=== PATIENT | female | born 1985 | race Caucasian/White ===

== ENCOUNTER → 2016-11-16 | Outpatient (CLI) | payer BC ==
[~2016-11-16] MED LIST: ONDA4TAB46 PO; PRENTAB26 PO
[2016-11-16 11:52] LABS: URINE APPEARANCE CLEAR (CLEAR); URINE BILIRUBIN NEG (NEG); URINE COLOR YELLOW; URINE NITRITE NEG (NEG); URINE PH 6.5 (4.5-7.5); URINE SPECIFIC GRAVITY 1.015 (1.000-1.030); UROBILINOGEN NEG (NEG)
[2016-11-16 11:55] LABS: MANUAL MICROSCOPIC REQUIRED? NO; REVIEW REQ? NO
== END | disposition home or self-care (01) ==
LOC: C.LABSPEC 11:09
PROVIDERS: ATTEND Obstetrics & Gynecology
DX: Z34.83 Encounter for supervision of other normal pregnancy, third trimester (principal)

== ENCOUNTER → 2016-11-16 | Outpatient (CLI) | payer BC ==
[2016-11-16 11:19] LABS: HEMATOCRIT 36.3 % (37-47)
[2016-11-16 14:07] LABS: GTGD 50 Grams
== END | disposition home or self-care (01) ==
LOC: C.LAB1850 10:37
PROVIDERS: ATTEND Obstetrics & Gynecology
DX: Z34.83 Encounter for supervision of other normal pregnancy, third trimester (principal)

== ENCOUNTER → 2017-01-14 | Outpatient (CLI) | payer BC ==
[~2017-01-14] MED LIST changes: -ONDA4TAB46 PO
== END | disposition home or self-care (01) ==
LOC: C.LABSPEC 16:23
PROVIDERS: ATTEND Obstetrics & Gynecology
DX: Z34.83 Encounter for supervision of other normal pregnancy, third trimester (principal)

== ENCOUNTER 2017-02-06 14:26 | Inpatient (IN) | payer BC ==
[~2017-02-06] VITALS: Ht 175.3 cm; Wt 77.7 kg
[2017-02-06] MEDS ORDERED: LACTATED RINGER'S 1000ML 1,000 ML IV SCH (15:54)
[2017-02-06] MEDS ORDERED: LACTATED RINGER'S 1000ML 1,000 ML IV PRN (15:54)
[2017-02-06] MEDS ORDERED: LACTATED RINGER'S 1000ML 500 ML IV PRN ×2 (16:48→19:53)
[2017-02-06] MEDS ORDERED: OXYTOCIN 30 UNITS/500ML NSS IV PRN ×2 (17:00→20:30)
[2017-02-06 17:03] LABS: MEAN CELL VOLUME 91.4 fL (80-100); MEAN CORPUSCULAR HEMOGLOBIN 31.3 pg (25-34); MEAN CORPUSCULAR HGB CONC 34.3 g/dl (32-36); MEAN PLATELET VOLUME 10.1 fL (7.4-10.4); PLATELET COUNT 191 K/uL (130-400); RED BLOOD COUNT 3.83 M/uL (4.2-5.4); WHITE BLOOD COUNT 14.04 K/uL (4.8-10.8)
[2017-02-06] MEDS ORDERED: EpHEDrine SULFATE INJ 50 MG/ML AMP ONE (19:07)
[2017-02-06] MEDS ORDERED: BUPIVACAINE 0.25% 30 ML VIAL ONE (19:07)
[2017-02-06] MEDS ORDERED: FENTANYL 2MCG/ML ROPIV 1.25MG/ML 100ML BAG EPI ONE (19:07)
[2017-02-06] MEDS ORDERED: FENTANYL CITRATE INJ 50 MCG/1 ML 2 ML VIAL ONE (19:08)
[2017-02-06 19:25] VITALS: Ht 175.3 cm; Wt 77.7 kg
[2017-02-06] MEDS ORDERED: NALOXONE HCL INJ 1 MG in SODIUM CHLORIDE 0.9% 1000ML 1,000 ML IV PRN (19:53)
[2017-02-06] MEDS ORDERED: FENTANYL 2MCG/ML ROPIV 1.25MG/ML 100ML BAG EPI PRN (20:00)
[2017-02-06] MEDS ORDERED: ONDANSETRON INJ 2 MG/ML 2 ML VIAL IV PRN (20:00)
[2017-02-06] MEDS ORDERED: EpHEDrine SULFATE INJ 50 MG/ML AMP IV PRN (20:00)
[2017-02-06] MEDS ORDERED: DiphenhydrAMINE HCL 50 MG/ML VIAL IV PRN (20:00)
[2017-02-06] MEDS ORDERED: NALBUPHINE HCL INJ 10 MG/ML AMP IV PRN (20:00)
[2017-02-06] MEDS ORDERED: NALOXONE HCL INJ 0.4 MG/1 ML VIAL/CARP IV PRN (20:00)
[2017-02-06] MEDS ORDERED: LANOLIN OINT EXT PRN ×2 (20:30)
[2017-02-06] MEDS ORDERED: ACETAMINOPHEN 325 MG TAB PO PRN (20:30)
[2017-02-06] MEDS ORDERED: OXYCODONE/ACETAMINOPHEN 5-325 TAB PO PRN (20:30)
[2017-02-06] MEDS ORDERED: BENZOCAINE 20% AER SPR 82.5 GM CAN EXT PRN (20:30)
[2017-02-06] MEDS ORDERED: SUPERCREAM 0.870 % 15GM JAR EXT PRN (20:30)
[2017-02-06] MEDS ORDERED: HYDROCORTISONE ACETATE 25 MG SUPP PR PRN (20:30)
[2017-02-06] MEDS ORDERED: DIPHTHERIA/TETANUS/PERTUSSIS 0.5 ML SYR/VIAL IM. ONE (20:30)
[2017-02-06] MEDS ORDERED: ACETAMINOPHEN/CODEINE 300/30MG TAB PO PRN ×2 (20:30)
--- NOTE | 2017-02-06 21:07 | DELIVERY SUMMARY ---
DATE OF OPERATION: 02/06/2017 PREOPERATIVE DIAGNOSES: 1. Intrauterine at 40 weeks. 2. Premature rupture of membranes. POSTOPERATIVE DIAGNOSES: Same. PROCEDURES: 1. Pitocin augmentation. 2. Epidural anesthesia. 3. Normal spontaneous vaginal delivery. 4. Second degree perineal laceration with repair. SURGEON: Angelica Carrera MD. ANESTHESIA: Epidural. ESTIMATED BLOOD LOSS: 350 mL. DESCRIPTION OF PROCEDURE: The patient presented to labor and delivery having been ruptured for over 12 hours. She was unfortunately not mihaela in a regular pattern. The strip was category 2 and I advised Pitocin augmentation. She accepted. Pitocin was started as she progressed and got uncomfortable she received an epidural anesthesia and shortly thereafter was found to be complete/complete and +1 station. She pushed very effectively. There was a band at the hymenal ring of scar tissue that was very tight and I was unable to get it significantly massaged so I used the scissors to cut this band. Once this was performed the patient was able to bring the baby to [facility]. The head was delivered atraumatically in SHAWANDA presentation. There was a nuchal arm. There was a nuchal cord x1 which was reduced. The nose and mouth were bulb suctioned. The rest of the was then delivered without difficulty. The nose and mouth were again bulb suctioned. The infant was placed on the maternal abdomen where the cord was clamped and cut. Cord blood and segment were obtained. The placenta was delivered spontaneously intact with a 3-vessel cord. Cervix, sulci and rectum were examined and found to be intact. A second degree perineal laceration was repaired in normal standard fashion with 3-0 Vicryl. Hemostasis was obtained with dilute Pitocin and fundal massage. Estimated blood loss was 350 mL. Apgars were 8 and 9, mother and baby doing well at the end of the delivery. I attest to the content of the Intraoperative Record and any orders documented therein. Any exceptio ns are noted below.
--- NOTE | 2017-02-06 21:12 | Anesthesia Procedure Note ---
Anesthesia Epidural Removal Nt Date & Time Feb 06, 2017 at 21:11 Vital Signs Pain Intensity: 8.0 Notes Mental Status: alert / awake / arousable, participated in evaluation Nausea / Vomiting: adequately controlled Pain: adequately controlled Airway Patency, RR, SpO2: stable & adequate BP & HR: stable & adequate Hydration State: stable & adequate Neuraxial Anesthesia: was administered Anesthetic Complications: no major complications apparent, pt satisfied with anesthetic care Epidural: removed without complications, with tip intact
[2017-02-06] MEDS: IBUPROFEN 600 MG TAB PO PRN (22:30)
[2017-02-06 23:45] VITALS: BP 109/67; PULSE 83; TEMP 36.6
[2017-02-07 03:30] VITALS: BP 104/62; PULSE 58; TEMP 36.7
[2017-02-07] MEDS: IBUPROFEN 600 MG TAB PO PRN ×3 (06:04→19:48)
[2017-02-07 07:39] LABS: HEMATOCRIT 33.5 % (37-47)
[2017-02-07 08:00] VITALS: BP 103/68; PULSE 70; TEMP 36.6; O2SAT 97
--- NOTE | 2017-02-07 08:02 | Progress Note ---
Subjective Feb 07, 2017. Subjective conversation w/ patient, physical exam Ambulation: ambulating normally Voiding: no voiding problems Passing Gas: Yes Diet Tolerance: Regular Diet Lochia: Small Feeding Type: Breast Feeding Review of Systems Constitutional: No chills, No fever Respiratory: No cough, No shortness of breath Cardiac: No chest pain, No claudication Abdomen: + problem reported (bloated), No nausea, No pain, No vomiting Objective Vital Signs Date Time Temp Pulse Resp B/P Pulse Ox O2 Delivery O2 Flow Rate FiO2 02/07/17 03:30 36.7 58 16 104/62 Room Air 02/06/17 23:45 36.6 83 16 109/67 Room Air 02/06/17 23:45 Room Air Physical Exam General Appearance: WELL-APPEARING, NO APPARENT DISTRESS Respiratory/Chest: lungs clear, no accessory muscle use Cardiovascular: regular rate, rhythm, no murmur Fundus: Firm, Non-Tender, Relation to Umbilicus (at umbilicus) Laboratory Results Last 24 Hours Test 02/06/17 16:55 02/07/17 07:16 White Blood Count 14.04 K/uL Red Blood Count 3.83 M/uL Hemoglobin 12.0 g/dL 11.2 g/dL Hematocrit 35.0 % 33.5 % Mean Corpuscular Volume 91.4 fL Mean Corpuscular Hemoglobin 31.3 pg Mean Corpuscular Hemoglobin Concent 34.3 g/dl RDW Standard Deviation 46.3 fL RDW Coefficient of Variation 14.1 % Platelet Count 191 K/uL Mean Platelet Volume 10.1 fL Assessment and Plan Problem List Medical Problems: (1) Abdominal cramping Status: Acute (2) Intrauterine Status: Acute (3) Nausea & vomiting Status: Acute Post- Day#: 1 Continue Routine Care: Resident Physician Supervision Note: I interviewed and examined the patient. Discussed with Dr. Martinez and agree with findings and plan as documented in the note. Any exceptions or clarifications are listed here: Doing well. Routine care. Documented By: Angelica Carrera s/p KOBE Day 1 - vitals reviewed and wnl - Hgb 11.2 this morning - blood: O+, Rubella immune, GBS negative - encourage ambulation, encourage , monitor lochia - patient doing well clinically - will order simethicone for abdominal bloating - CONTINUE ROUTINE POST CARE
[2017-02-07] MEDS: DOCUSATE SODIUM 100 MG CAP PO SCH ×2 (08:29→19:48)
[2017-02-07] MEDS: PRENATAL VITAMIN TAB PO SCH (08:29)
[2017-02-07] MEDS: SIMETHICONE 80 MG CHEW PO SCH ×3 (08:30→19:48)
[2017-02-07 11:30] VITALS: BP 103/57; PULSE 74; TEMP 36.8; O2SAT 96
[2017-02-07 15:50] VITALS: BP 106/55; PULSE 79; TEMP 36.9
[2017-02-07 20:30] VITALS: BP 126/64; PULSE 97; TEMP 36.8
[2017-02-07 23:10] VITALS: BP 104/67; PULSE 71; TEMP 36.9; O2SAT 96
[2017-02-08] MEDS: IBUPROFEN 600 MG TAB PO PRN ×2 (00:56→06:19)
--- NOTE | 2017-02-08 06:54 | Progress Note ---
Subjective Feb 08, 2017. Subjective conversation w/ patient, physical exam Ambulation: ambulating normally Voiding: no voiding problems Passing Gas: Yes Diet Tolerance: Regular Diet Lochia: Small Feeding Type: Breast Feeding Review of Systems Constitutional: No chills, No fever Respiratory: No cough, No shortness of breath Cardiac: No chest pain, No claudication Objective Vital Signs Date Time Temp Pulse Resp B/P Pulse Ox O2 Delivery O2 Flow Rate FiO2 02/07/17 23:10 36.9 71 16 104/67 96 Room Air 02/07/17 23:10 Room Air 02/07/17 20:30 36.8 97 16 126/64 Room Air 02/07/17 15:50 Room Air 02/07/17 15:50 36.9 79 16 106/55 Room Air 02/07/17 11:30 36.8 74 18 103/57 96 Room Air 02/07/17 08:00 36.6 70 20 103/68 97 Room Air 02/07/17 08:00 97 Room Air Physical Exam General Appearance: WELL-APPEARING, NO APPARENT DISTRESS Respiratory/Chest: lungs clear, no accessory muscle use Cardiovascular: regular rate, rhythm, no murmur Fundus: Firm, Non-Tender, Relation to Umbilicus (1cm below) Extremities: non-tender, no calf tenderness Laboratory Results Last 24 Hours Test 02/07/17 07:16 Hemoglobin 11.2 g/dL Hematocrit 33.5 % Assessment and Plan Problem List Medical Problems: (1) Abdominal cramping Status: Acute (2) Intrauterine Status: Acute (3) Nausea & vomiting Status: Acute Post- Day#: 2 Continue Routine Care: Resident Physician Supervision Note: I interviewed and examined the patient. Discussed with Dr. Martinez and agree with findings and plan as documented in the note. Any exceptions or clarifications are listed here: [None] Documented By: Ami Rivas s/p Day 2 - vitals reviewed and wnl - Hgb 11.2 yesterday - blood: O+, Rubella immune, GBS negative - encourage ambulation, encourage , monitor lochia - patient doing well clinically - patient counselled on discharge instructions - PATIENT TO BE DISCHARGED TODAY
--- NOTE | 2017-02-08 07:19 | Discharge Instructions ---
Discharge Instructions Date of Service Feb 08, 2017. Admission Reason for Admission: R/O Ruptured Membranes Discharge Discharge Diagnosis / Problem: Spontaneous Vaginal Delivery Discharge Goals Goal(s): Routine recovery after delivery Medications Continue Dispensed Medications: supercream, dermaplast, tucks, lansinoh Activity Recommendations Activity Limitations: per Instructions/Follow-up section . Instructions / Follow-Up Instructions / Follow-Up ACTIVITY RECOMMENDATIONS: * Gradual return to full activity over the next 2-3 weeks. * No lifting - nothing heavier than baby over the next 2-3 weeks. * Do not engage in vigorous exercise, sexual activity or sports until cleared by your physician. * Do not drive or operate any motorized equipment until cleared by your physician. * You may shower/bathe daily. MEDICATIONS: For discomfort or pain, you may use Acetaminophen (Tylenol), Ibuprofen (Advil), or Naproxen (Aleve) following the package directions. For constipation you may use Colace following the package directions. BREAST CARE: If you are not breast feeding: * Wear a supportive bra 24 hours a day for one to two weeks. * Avoid stimulating your breasts and nipples as much as possible during the first few weeks after delivery. * When taking a shower, have the warm water hit your back, not breasts. * When your breasts feel full, apply ice packs. Usually three to four times a day helps ease the discomfort. * Take a mild pain medication (Tylenol / Motrin) when you are uncomfortable. If breast feeding: * Use breast milk to lubricate nipples. Lansinoh cream may be used for sore nipples. You do not need to remove cream prior to breast feeding. If using a different brand of cream, check the label for directions regarding removal of cream prior to nursing. * Wear a supportive bra. * If having problems with breasts or breast feeding, call a mgmt consultant or your health care provider. EPISIOTOMY CARE: After delivery, if you have an episiotomy (stitches), the following steps will ease discomfort and aid healing. * For the first 24 hours after delivery, place ice packs next to your episiotomy to help reduce swelling. * After the first 24 hour-period, sitz baths, either portable or in the tub, are suggested. A shower with a shower arm sprayed over the episiotomy may be comforting. * [place] care should be done after each voiding and bowel movement. Squirt warm water from a plastic bottle over the perineum (region of the body between the anus and urinary opening) and pat dry. * Use Dermoplast to ease discomfort. Shake container. [place] directly over the episiotomy. Place a Tucks on a clean sanitary pad next to your episiotomy. SPECIAL CARE INSTRUCTIONS: When you are discharged from the hospital, it is important for you to follow the instructions listed below: * During the first week at home, you should be able to care for yourself and your baby. In addition, the usual light household activities are encouraged. * Limit your activities to the way you feel. Do not try to clean the house or move furniture. Be sensible. * If you actively engage in sports and have done so up until the time of your delivery, you may resume these activities as soon as you feel able. This may take up to one month or even longer. Use good judgment. * Continue to take your vitamins for at least six weeks after the of your baby. * Your diet need not be limited unless you were on a special diet before your delivery. Breast-feeding mothers need around 2500 calories per day and at least 64-80 ounces of fluid per day (8 to 10 glasses). * You should eat foods from the four major food groups. Crash diets or fad diets are to be avoided. Eating lean meats, fresh fruits and vegetables, low-fat dairy products, high fiber foods and a regular exercise program, will help you get back to your pre- weight without putting your health at risk. * Constipation is sometimes a problem after delivery. Take a mild laxative as needed. If breast feeding, Milk of Magnesia is acceptable to use. You may use a suppository or Fleets enema if no episiotomy. * A daily shower or tub bath is suggested. Be sure to thoroughly and gently dry the perineum. * A bloody vaginal discharge will usually continue until around four weeks post . A small amount of bleeding may continue for as long as six weeks. Vaginal discharge changes from the bright red bleeding after delivery to pink then brownish and finally yellowish-pink before becoming white and disappearing. * Bleeding may increase with activity. Your first period may come in 4-8 weeks. If you are breast feeding, your period may be delayed even longer. * [place] (sex) can begin whenever both you and your partner feel comfortable and do not have any form of genital infection. It is recommended that you wait at least six weeks for internal and external healing to occur. If you have questions, please talk to your health care practitioner. A condom should be used to prevent infection and . * Foreplay, gentle intercourse and lubrication is very important the first several times to prevent pain. A water-based lubricant such as K-Y jelly or Astroglide may be used. * If you have RH negative blood and your baby is RH positive, you will receive RHOGAM by injection prior to discharge. The nurse will give you a card to keep with you that has the date and place that you received RHOGAM after delivery. * During your care, you had a Rubella screen done to check for the presence of rubella antibodies in your blood. If your test was negative, you will receive a Rubella vaccine prior to discharge. This vaccine may cause a fever, soreness at the injection site and flu-like symptoms. If these symptoms persist, notify your health care practitioner. is not advised for one month after a Rubella vaccine. * Verbalizes understanding of car seat law as reviewed with patient nursing. * Car Seat hand-out given and reviewed with patient by nursing. * Shaken baby information reviewed with patient by nursing. Call you doctor if: * Heavy bleeding (saturating several pads an hour) or passing clots the size of your fist. * A fever >101 degrees F (38.3 degrees C) on two occasions four hours apart and /or chills. * Unusual pain in the pelvic or vaginal areas. * "Baby Blues" lasting longer than two weeks. If you have any questions or concerns, call your health care practitioner at . FOLLOW UP VISIT: * Please call the office at to schedule a 6 week examination. It is important you keep this appointment. It is important for you to make arrangements for either yearly or twice yearly check-ups thereafter. Current Hospital Diet Patient's current hospital diet: Gluten Free Diet Discharge Diet Recommended Diet: Regular Diet Pending Studies Studies pending at discharge: no Medical Emergencies . Who to Call and When: Medical Emergencies: If at any time you feel your situation is an emergency, please call 911 immediately. . Non-Emergent Contact Non-Emergency issues call your: Primary Care Provider, Hose Tender . . "Provider Documentation" section prepared by Salomon Martinez. VTE Core Measure Inpt VTE Proph given/why not?: Treatment not indicated
[2017-02-08 08:00] VITALS: BP 113/67; PULSE 69; TEMP 36.7; O2SAT 97
[2017-02-08] MEDS: PRENATAL VITAMIN TAB PO SCH (08:20)
[2017-02-08] MEDS: DOCUSATE SODIUM 100 MG CAP PO SCH (08:20)
[2017-02-08] MEDS: SIMETHICONE 80 MG CHEW PO SCH ×2 (08:20→12:12)
[2017-02-08 13:14] VITALS: BP_DIAS 67; PULSE 69; TEMP 36.7
== END 2017-02-08 14:43 | disposition home or self-care (01) | DRG 775 ==
LOC: C.OPB 14:26 → C.LD 14:26 → C.OPB 15:56 → C.OBG 23:03
PROVIDERS: ADMIT Obstetrics & Gynecology; ATTEND Obstetrics & Gynecology
PROC: 10E0XZZ Delivery of Products of Conception, External Approach (ICD-10-PCS; principal; 2017-02-06)
PROC: 0KQM0ZZ Repair Perineum Muscle, Open Approach (ICD-10-PCS; principal; 2017-02-06)
DX: O48.0 Post-term pregnancy (principal); O70.1 Second degree perineal laceration during delivery; Z3A.40 40 weeks gestation of pregnancy; Z37.0 Single live birth

== ENCOUNTER → 2017-04-07 | Outpatient (CLI) | payer BC | END | disposition home or self-care (01) | LOC: C.PAPS 09:34 | PROVIDERS: ATTEND Obstetrics & Gynecology | DX: Z01.419 Encounter for gynecological examination (general) (routine) without abnormal findings (principal) ==

== ENCOUNTER → 2017-05-11 | Outpatient (CLI) | payer BC ==
[2017-05-14 02:00] LABS: CHLAMYDIA TRACH RNA*** NOT DETECTED (NOT DETECTED); GC (NEIS GONORRHOEAE)RNA** NOT DETECTED (NOT DETECTED)
== END | disposition home or self-care (01) ==
LOC: C.LABSPEC 13:27
PROVIDERS: ATTEND Physician Assistant
DX: Z30.430 Encounter for insertion of intrauterine contraceptive device (principal)

== ENCOUNTER → 2017-05-11 | Outpatient (CLI) | payer BC ==
[2017-05-11 10:13] LABS: PREG INTERNAL NEGATIVE QC NEG CLEAR BACKGROUND; PREG INTERNAL POSITIVE QC POS CONTROL LINE
== END | disposition home or self-care (01) ==
LOC: C.LAB 09:24
PROVIDERS: ATTEND Physician Assistant
DX: Z30.9 Encounter for contraceptive management, unspecified (principal)

== ENCOUNTER 2022-09-01 05:55 | Inpatient (IN) ==
[2022-09-01] MEDS ORDERED: LACTATED RINGER'S 1,000 ML IV PRN (06:10)
[2022-09-01] MEDS ORDERED: LIDOCAINE 1% LOCAL 20 ML VIAL INFIL PRN (06:10)
[2022-09-01] MEDS ORDERED: OXYTOCIN 30 UNITS/500 ML BAG IV PRN ×2 (06:10→07:06)
[2022-09-01] MEDS ORDERED: PENICILLIN G POTASSIUM 6 MU in DEXTROSE 5% 250 ML IV STA (06:10)
--- NOTE | 2022-09-01 06:15 | Labor Progress Brief Note ---
Date of Service September 01, 2022 Subjective 37yo arrives from home with c/o contractions very painful, Q4min, no LOF or VB, good FM. Known GBS positive and AMA. Assessment & Plan (1) Normal labor: Plan: Admit, epidural if possible once CBC is resulted, anticipate . PCN for GBS though unlikely will achieve adequate treatment. Physical Exam Genitourinary: /+1 Vertex Intact membranes FHT Cat 1 [place] Q3-4 Results & Data ([facility]) Vital Signs (Past 12 Hours) Vital Signs Pulse BP 09/01/22 06:05 72 135/77 Coding Level of Care Code None Diagnoses Normal labor O80; Z37.9
--- NOTE | 2022-09-01 07:02 | Delivery Summary ---
Vaginal Delivery Summary Date of Service September 01, 2022 Vaginal Delivery Summary DIAGNOSES: 1. Rocha intrauterine at 40w1d gestation. 2. Spontaneous onset of labor. 3. Group B Streptococcus Pos. PROCEDURE: Spontaneous vaginal delivery and repair of 2nd degree laceration. SURGEON: Janis Stafford MD. ALLEY WORKER: None. ESTIMATED BLOOD LOSS: 350 mL. COMPLICATIONS: None. PLACENTA: Spontaneous and intact with a 3-vessel cord. DISPOSITION: Stable to labor and delivery. DESCRIPTION: The patient pushed well and brought the head to in DOA position. The 's head was allowed to deliver with contraction force and no further active pushing, with the perineum protected during this time. There was no nuchal cord. The shoulder was anterior. The shoulders and body delivered without any difficulty, and the infant was placed on the maternal abdomen. It was vigorous and moving all extremities, and making respiratory efforts. The cord was doubly clamped by the MD and then cut by the FOB. The placenta delivered spontaneously and was noted to be intact and with a 3VC. The cervix, vagina and perineum were examined and were found to have a second degree laceration, primarily comprised of prior scar tissue and nearly hemostatic. This was infiltrated with 1% plain lidocaine and repaired with 3-0 vicryl suture in the usual manner, including a crown suture to rebuild the perineal body. The fundus was firm and lochia minimal immediately after delivery[place] [facility] [place] Vaginal Delivery Codes: 70358 global code for the antepartum, delivery, and post-
[2022-09-01] MEDS ORDERED: ACETAMINOPHEN 325 MG TAB PO PRN (07:06)
[2022-09-01] MEDS ORDERED: BENZOCAINE 20% AER SPR 82.5 GM CAN EXT PRN (07:06)
[2022-09-01] MEDS ORDERED: oxyCODONE/ACETAMINOPHEN 5mg/325mg TAB PO PRN (07:06)
[2022-09-01] MEDS ORDERED: HYDROCORTISONE ACETATE 25 MG SUPP PR PRN (07:06)
[2022-09-01] MEDS ORDERED: bisacodyL 10 MG SUPP PR PRN (07:06)
[2022-09-01] MEDS ORDERED: DIPHTHERIA/TETANUS/PERTUSSIS 0.5 ML SYR/VIAL IM ONE (08:00)
[2022-09-01] MEDS: IBUPROFEN 600 MG TAB PO PRN ×4 (08:04→23:52)
[2022-09-01] MEDS: PRENATAL VITAMIN 1 TAB PO SCH (08:04)
[2022-09-01] MEDS: DOCUSATE SODIUM 100 MG CAP PO SCH ×2 (08:04→20:29)
[2022-09-01 08:19] LABS: Hematocrit (blood only) 35.3 % (34.1-44.9); Hemoglobin 11.8 g/dl (12.0-16.0); Mean Corpuscular Hemoglobin 31.1 pg (25.0-34.0); Mean Corpuscular Hgb Conc 33.4 g/dL (32.0-36.0); Mean Corpuscular Volume 92.9 fL (80.0-100.0); Mean Platelet Volume 10.2 fL (9.4-12.3); Platelet Count 168 K/uL (130-400); RDW Standard Deviation 47.7 fL (36.4-46.3); White Blood Count 17.76 K/ul (4.8-10.8)
[2022-09-01] MEDS ORDERED: Nursing to Pharmacy Communication SCH (08:45)
[2022-09-01] MEDS ORDERED: ESCITALOPRAM OXALATE 10 MG TAB PO SCH ×2 (09:00→21:00)
[2022-09-01] MEDS ORDERED: PENICILLIN G POTASSIUM 3 MU in DEXTROSE 5% 100 ML IV PRN (09:10)
--- NOTE | 2022-09-02 06:07 | Obstetrical Progress Note ---
Date of Service <Swathi Delcid - Last Filed: 09/02/22 07:00> September 02, 2022 Assessment & Plan <Swathi Delcid DO - Last Filed: 09/02/22 07:00> (1) Status post vaginal delivery: continue OOB, ambulation, diet as tolerated <Angelica Carrera MD, FACOG - Last Filed: 09/02/22 07:12> (1) Status post vaginal delivery: Subjective <Swathi Delcid - Last Filed: 09/02/22 07:00> Latisha is a 37 y/o female who is now PPD # 1 following spontaneous vaginal delivery at 40 1/7 weeks. Reports feeling well overall this morning. Mild abdominal cramping pain well managed on analgesics. Voiding. Tolerating meals overnight and able to ambulate some. Some persistent lochia with some improvement this morning. Breast feeding. Review of Systems Denies fever, chills, sweats Denies shortness of breath, difficulty breathing, chest pain, palpitations, chest pressure. Denies breast pain. Denies dysuria. Denies headache or changes in vision. Physical Exam <Swathi Delcid - Last Filed: 09/02/22 07:00> General: Alert, oriented. No acute distress. Cardiac: Regular rate and rhythm, no murmurs/rubs/gallops. Respiratory: Clear to auscultation bilaterally a/p, no wheezes/rales/rhonchi. No increased work of breathing. Symmetrical chest rise. No respiratory distress. Abdomen: Soft, nontender, nondistended. Uterus: Uterine fundus firm, palpable 2 cm below umbilicus. Lower Extremities: No lower extremity edema or swelling. No deep calf pain. Jayson's negative bilaterally. Results & Data ([facility]) <Swathi Delcid - Last Filed: 09/02/22 07:00> Vital Signs (Past 12 Hours) Vital Signs Temp Pulse Resp BP Pulse Ox O2 Del Method 09/01/22 23:55 36.4 C L 67 20 119/71 96 Room Air 09/01/22 19:44 36.5 C 65 16 115/75 Room Air <Angelica Carrera MD, FACOG - Last Filed: 09/02/22 07:12> Co-Signing Physician Notes Resident Physician Supervision Note: I interviewed and examined the patient. Discussed with Dr. Delcid and agree with findings and plan as documented in the note. Any exceptions or clarifications are listed here: Doing well. Would like to go home. Meeting d/c criteria. However, gbs positive and not treated, will be based on peds. Documented By: Angelica Carrera MD, FACOG Resident Activity Tracking <Swathi Delcid, DO - Last Filed: 09/02/22 07:00> Resident Involvement: Resident Care Provided Care Provided: OB Delivery (Post )
[2022-09-02 06:54] LABS: Hematocrit (blood only) 31.1 % (34.1-44.9); Hemoglobin 10.5 g/dl (12.0-16.0); Mean Corpuscular Hemoglobin 31.4 pg (25.0-34.0); Mean Corpuscular Hgb Conc 33.8 g/dL (32.0-36.0); Mean Corpuscular Volume 93.1 fL (80.0-100.0); Mean Platelet Volume 10.1 fL (9.4-12.3); Platelet Count 160 K/uL (130-400); RDW Coefficient of Variation 14.1 % (11.5-14.5); RDW Standard Deviation 48.1 fL (36.4-46.3); Red Blood Count 3.34 M/uL (3.93-5.22); White Blood Count 14.24 K/ul (4.8-10.8)
[2022-09-02] MEDS: PRENATAL VITAMIN 1 TAB PO SCH (07:40)
[2022-09-02] MEDS: DOCUSATE SODIUM 100 MG CAP PO SCH (07:40)
[2022-09-02] MEDS: IBUPROFEN 600 MG TAB PO PRN ×2 (07:41→11:51)
[2022-09-02] MEDS ORDERED: bisacodyL 5 MG TABEC PO SCH (20:00)
== END 2022-09-02 16:23 | disposition home or self-care (01) | DRG 807 ==
LOC: OPB 05:55 → 4S1 05:58 → 4E2 09:20